=== PATIENT | male | born 1965 | race Hispanic/Latino ===

== ENCOUNTER → 2023-03-15 | Outpatient (CLI) | payer OTHER | END | disposition home or self-care (01) | LOC: EDUNIT# 09:50 → SHCH 09:51 | PROVIDERS: ATTEND Internal Medicine Cardiovascular Disease | DX: I70.203 Unspecified atherosclerosis of native arteries of extremities, bilateral legs (principal) | CPT/HCPCS: 93925 ==

== ENCOUNTER 2024-11-08 05:57 | Day surgery (SDC) | payer OTHER ==
[2024-11-05 11:14] LABS: CREATININE 1.4 mg/dL (0.5-1.3); POTASSIUM 4.5 mmol/L (3.5-5.1)
[2024-11-05 11:20] LABS: INR 1.05 (0.85-1.15); PROTHROMBIN TIME 11.1 SEC (9.6-11.6)
[2024-11-05 11:21] LABS: PARTIAL THROMBOPLASTIN TIME 29.2 SEC (26.3-35.5)
[2024-11-05 11:26] LABS: B-TYPE NATRIURETIC PEPTIDE < 5 pg/mL (0-100)
[2024-11-05 11:29] LABS: BASOPHILS # (AUTO) 0.04 K/uL (0.00-0.20); BASOPHILS % (AUTO) 0.6 % (0.0-5.0); EOSINOPHILS # (AUTO) 0.21 K/uL (0.00-0.70); EOSINOPHILS % (AUTO) 3.1 % (0.0-8.0); HEMATOCRIT 46.9 % (42-54); IMMATURE GRANULOCYTE ABSOLUTE 0.03 K/uL (0-1); LYMPHOCYTES # (AUTO) 1.9 K/uL (1.0-4.8); LYMPHOCYTES % (AUTO) 27.9 % (21.0-51.0); MEAN CORPUSCULAR HEMOGLOBIN 30.4 pg (27.0-33.0); MEAN CORPUSCULAR HGB CONC 32.8 g/dL (32.0-36.0); MEAN CORPUSCULAR VOLUME 92.5 fL (79-99); MONOCYTES # (AUTO) 0.5 K/uL (0.1-1.0); MONOCYTES % (AUTO) 7.6 % (3.0-13.0); NEUTROPHILS # (AUTO) 4.1 K/uL (1.8-7.7); NEUTROPHILS % (AUTO) 60.4 % (40.0-77.0); PLATELET COUNT (AUTO) 233 K/uL (130-400); RED BLOOD CELL COUNT(AUTO) 5.07 MIL/uL (4.50-6.20); RED CELL DISTRIBUTION WIDTH 15.2 % (11.0-15.5); WHITE BLOOD COUNT (AUTO) 6.8 K/uL (4.8-10.8)
[2024-11-05 11:49] VITALS: BP 101/62; PULSE 74; RESP 18; TEMP 97.7
--- NOTE | 2024-11-05 15:22 | NUR ---
REPORT REPORTED BUN AND CREAT TO STEPHANIE CASEY NP. OK TO PROCEED
[2024-11-08] VITALS (9 sets, daily range): BP systolic 108–128; BP diastolic 63–73; PULSE 73–90; RESP 11–16; TEMP 97.2–97.7
[~2024-11-08] VITALS: Ht 182.9 cm; Wt 82.3 kg
[~2024-11-08 05:57] MED LIST: ASPI-1443 PO; ATOR10TA69 PO; BACL10TA PO; COQ10 PO; EMPA25TA PO; FINA5TAB41 PO; GABA-1405 PO; GLIP1TAB6 PO; INSU100V SQ; LEVO5TAB13 PO; LISI10TA24 PO; LUBI24CA40 PO; MAGN500C4 PO; MELO-106 PO; METO-408 PO; MONT-39 PO; PANT40TA54 PO; SEMA1PEN3 SQ; TAMS-55 PO; TERB250T89 PO; TRESIBA SQ; TYLENOL ARTHRITIS PO
[2024-11-08] MEDS: 0.9%NACL 1000ML 1,000 ML IV SCH (06:39)
[2024-11-08] MEDS ORDERED: LIDOCAINE HCL 400MG/20ML VIAL ONE (06:57)
[2024-11-08] MEDS ORDERED: HEParin-NS 1,000 UNIT/500 ML 1,000 ML IV ONE (06:58)
[2024-11-08] MEDS ORDERED: IODIXANOL 320 MG/ML 100 ML VIAL ONE (06:58)
[2024-11-08] MEDS ORDERED: NITROGLYCERIN 50MG VIAL ONE ×2 (06:58→09:41)
[2024-11-08] MEDS ORDERED: HEParin 10,000 UNIT/10ML (1,000 UNIT/ML) VIAL ONE (06:58)
[2024-11-08] MEDS ORDERED: MIDAZOLAM HCL 1 MG/ML 2ML VIAL ONE ×2 (08:06→09:36)
[2024-11-08] MEDS ORDERED: FENTanyl CITRate PF 50 MCG/1 ML 2ML VIAL ONE ×2 (08:06→09:55)
[2024-11-08] MEDS ORDERED: niCARDIpine 25MG INJ IV ONE (08:14)
[2024-11-08] MEDS ORDERED: cloPIDOgrel 300MG TAB ONE (09:13)
[2024-11-08] MEDS ORDERED: ASPIRIN 325MG EC TAB PO ONE (09:14)
[2024-11-08] MEDS ORDERED: HEParin-NS 1,000 UNIT/500 ML 500 ML IV ONE (09:20)
[2024-11-08] MEDS ORDERED: 0.9%NACL 1000ML 1,000 ML IV SCH (11:00)
--- NOTE | 2024-11-08 11:23 | PRN ---
Procedure:Peripheral Angiogram Procedure Note Procedure Note: Peripheral Angiogram Date of Service: 11/08/2024 Referring Physician: Dr. Cardoso Procedures Performed: Lower abdominal aortogram, right lower extremity peripheral angiogram, left common formal angiogram Indications for Procedure: PAD, Terrell category 3 symptoms (right > left) DM II HTN HLP Description of Procedure: [After informed consent was obtained the patient was prepped and draped in the usual sterile fashion a 6 [place]i arterial sheath with a hemostatic valve was inserted into the left common femoral artery using a modified Salinger technique on the first pass front wall puncture. A 5 [place]i Omni Flush catheter was then advanced over a soft angled Glidewire into the abdominal aorta and a lower abdominal aortogram with runoff was obtained. The findings are listed below. The Omni flush catheter was then advanced to the right common femoral artery and a right lower extremity arteriogram was obtained. The findings are listed below.] Findings: Lower abdominal aorta: patent Left common iliac artery: patent Left external iliac artery: patent Left internal iliac artery: patent Left common femoral artery: patent Left profunda artery: patent Left superficial femoral artery: patent with 20-30% stenosis in the distal segment of the artery Left popliteal artery: 30% stenosis in the mid segment of the artery Left anterior tibial artery: 100% stenosis (COMMUNICATIONS INSTRUCTOR = 40mm) in the proximal segment of the artery. The artery reconstitutes distally via collateral blood flow. Left tibioperoneal artery: patent Left peroneal artery: patent Left posterior tibial artery: patent Left pedal arch: Incomplete, with slow three-vessel runoff supplying the anterior and posterior segments of the left pedal arch Right common iliac artery: patent Right external iliac artery: patent Right internal iliac artery: patent Right common femoral artery: patent Right profunda artery: patent Right superficial femoral artery: patent Right popliteal artery: patent Right anterior tibial artery: Diffuse 95% stenosis in the proximal segment of the artery. 100% stenosis (COMMUNICATIONS INSTRUCTOR = 10mm) in the mid segment of the artery. The artery reconstitutes distally via collateral blood flow. Diffuse 95% stenosis in the distal segment of the artery Right peroneal artery: patent Right posterior tibial artery: patent Right pedal arch: Incomplete, with slow three-vessel runoff supplying the anterior and posterior segments of the right pedal arch. Intervention: After reviewing the above-mentioned findings the decision was made to intervene on the right anterior tibial artery. The soft angled Glidewire was inserted into the Omni flush catheter was advanced to the right popliteal artery. We then removed the Omni flush catheter and exchanged the short six Bah[place]i arterial sheath for a 65 cm six Bahraini destination arterial sheath, which was then placed in the mid right superficial femoral artery. We then administered heparin 75 units/kg, clopidogrel 600 mg x 1 dose, and aspirin 325 mg x 1 dose. We then advanced a 0.014 whisper guidewire and 0.014 quick cross catheter across the areas stenosis and into the right dorsalis pedis artery. We then removed the whisper guidewire and injected contrast into the quick cross catheter, to ensure that we were in the true lumen of the right dorsalis pedis artery. Once this w as confirmed we inserted the 0.014 whisper guidewire back into the quick cross catheter and advanced it into the right dorsalis pedis artery. We then removed the quick cross catheter and performed balloon angioplasty (1.5 x 40 mm) in the proximal, mid, and distal right anterior tibial artery. We then attempted to cross a 4.0 x 80 mm shockwave balloon but were unable to cross the areas stenosis in the proximal right anterior tibial artery. We then advanced the quick cross catheter over the 0.014 whisper guidewire across the areas stenosis and into the right dorsalis pedis artery. We then exchanged the whisper guidewire for a Viper wire, which was then placed in the right dorsalis pedis artery. We then removed the quick cross catheter and performed multiple passes of orbital atherectomy (CSI 1.25 mm solid) at different speed's (16515 > 40439) in the proximal, mid, and distal segments of the right anterior tibial artery. We then performed balloon lithotripsy (shockwave 0.0 x 80 mm) in the proximal, mid, and distal segments of the right anterior tibial artery. We then performed drug coated balloon angioplasty (Medtronic impact 4.0 x 200 mm) in the proximal and mid right anterior tibial artery. The balloons were then removed and repeat angiography was performed, which revealed a widely patent right anterior tibial artery, without dissection, perforation, and brisk three-vessel runoff supplying the anterior and posterior segments of the right pedal arch. The Viper wire and 65 cm six [place]i destination arterial sheath were then removed and the arteriotomy site in the left common femoral artery was successfully closed using a six [place]i Angio-Seal device. The patient tolerated the procedure well and without issue. Estimated Blood Loss: [40]mL Complications: [ None] Conclusion: 1. PAD, Robin category 3 symptoms, 95-100% stenosis in the proximal, mid, and distal right anterior tibial artery status post successful treatment with balloon angioplasty, orbital atherectomy (CSI 1.25 mm solid), balloon lithotripsy (shockwave 4.0 x 80 mm) and drug coated balloon angioplasty, resulting in a widely patent artery, without dissection, perforation, and brisk three-vessel runoff supplying the right foot/pedal arch. 2. Residual PAD, 100% stenosis (COMMUNICATIONS INSTRUCTOR) in the proximal left anterior tibial artery. The artery reconstitutes distally via collateral blood flow 3. DM II 4. HTN 5. HLP Recommendations/Instructions: 1. Continue goal-directed medical therapy. 2. Please start the patient on clopidogrel 75 mg daily and continue aspirin 81 mg daily. The patient will remain on DAPT for a minimum of 6 months, but optimally for 1 year. 3. Groin precautions 4. 4 hours of bedrest 5. Please start the patient on NS @ 100 mL/hr x 3 hours. 6. No driving x 48 hours 7. No strenuous activity or heavy lifting x 2 weeks 8. Okay to discharge home once bedrest is complete and the patient's femoral access site remains soft to palpation and free of significant bleeding, bruising, or hematoma formation. 9. We will bring the patient back within the next 2-3 weeks to address the stenosis in the left anterior tibial artery. GALE CARDOSO MD November 08, 2024 11:23
--- NOTE | 2024-11-08 13:08 | NUR ---
REPORT: HAND-OFF COMMUNICATION GIVEN TO ANGELA JONES RN.
== END 2024-11-08 13:55 | disposition home or self-care (01) ==
LOC: DAH 05:57
PROVIDERS: ATTEND Internal Medicine Cardiovascular Disease
DX: E11.51 Type 2 diabetes mellitus with diabetic peripheral angiopathy without gangrene (principal); I70.213 Atherosclerosis of native arteries of extremities with intermittent claudication, bilateral legs; I70.92 Chronic total occlusion of artery of the extremities; I10 Essential (primary) hypertension; E78.49 Other hyperlipidemia; K21.9 Gastro-esophageal reflux disease without esophagitis; R07.9 Chest pain, unspecified; R42 Dizziness and giddiness; M79.2 Neuralgia and neuritis, unspecified; R25.2 Cramp and spasm; Z79.01 Long term (current) use of anticoagulants; Z79.899 Other long term (current) drug therapy; Z79.82 Long term (current) use of aspirin; Z98.890 Other specified postprocedural states; Z83.3 Family history of diabetes mellitus
CPT/HCPCS: 36415; 75630; 75716; 80048; 82948; 83880; 85025; 85347; 85610; 85730; 96360; 96361; 99156; 99157; A4606; C1724; C1760; C1769; C1893; C1894; C9774; J1644; J2250; J3010; J3490; J7030; Q9967; A4215; A4216; A4221; A4222; A4223; A4663; C1725; C1887; C2623

== ENCOUNTER 2024-12-16 06:06 | Day surgery (SDC) | payer OTHER ==
--- NOTE | 2024-12-14 10:07 | EKG ---
[facility] Test Date: 2024-12-14 Test Time: 09:55:46 Pat Name: HARI JENKINS Department: [facility] Room: Gender: M Captain'S Assistant: [id number] : 1965 Requested By: GALE KELLOGG Order Number: [id number] Reading MD: Marilyn Rg Measurements Intervals [place] Rate: 68 P: 63 NC: 185 QRS: 34 QRSD: 92 T: 26 QT: 424 QTc: 450 Interpretive Statements Sinus rhythm Borderline ST elevation, anterolateral leads No previous ECG available for comparison Electronically Signed On 12-14-2024 18:53:49 CDT by Marilyn Rg Please click the below link to view image of tracing.
[2024-12-14 10:10] LABS: BASOPHILS # (AUTO) 0.03 K/uL (0.00-0.20); BASOPHILS % (AUTO) 0.4 % (0.0-5.0); EOSINOPHILS # (AUTO) 0.19 K/uL (0.00-0.70); EOSINOPHILS % (AUTO) 2.8 % (0.0-8.0); HEMATOCRIT 46.7 % (42-54); IMMATURE GRANULOCYTE ABSOLUTE 0.02 K/uL (0-1); LYMPHOCYTES # (AUTO) 2.1 K/uL (1.0-4.8); LYMPHOCYTES % (AUTO) 30.2 % (21.0-51.0); MEAN CORPUSCULAR HEMOGLOBIN 30.2 pg (27.0-33.0); MEAN CORPUSCULAR HGB CONC 32.1 g/dL (32.0-36.0); MONOCYTES # (AUTO) 0.6 K/uL (0.1-1.0); MONOCYTES % (AUTO) 8.1 % (3.0-13.0); NEUTROPHILS % (AUTO) 58.2 % (40.0-77.0); PLATELET COUNT (AUTO) 263 K/uL (130-400); RED BLOOD CELL COUNT(AUTO) 4.97 MIL/uL (4.50-6.20); RED CELL DISTRIBUTION WIDTH 14.1 % (11.0-15.5); WHITE BLOOD COUNT (AUTO) 6.9 K/uL (4.8-10.8)
[2024-12-14 10:19] VITALS: BP 105/61; PULSE 71; RESP 18; TEMP 97.3
[2024-12-14 10:20] LABS: CREATININE 1.1 mg/dL (0.5-1.3); POTASSIUM 4.4 mmol/L (3.5-5.1)
[2024-12-14 10:28] LABS: INR 1.12 (0.85-1.15); PROTHROMBIN TIME 11.7 SEC (9.6-11.6)
[2024-12-14 10:29] LABS: PARTIAL THROMBOPLASTIN TIME 31.3 SEC (26.3-35.5)
[2024-12-14 10:33] LABS: ADD UA MICROSCOPIC YES; APPEARANCE,URINE CLEAR (CLEAR); BILIRUBIN,URINE NEGATIVE (NEGATIVE); COLOR,URINE COLORLESS (YELLOW); GLUCOSE, URINE (UA) >=1000 mg/dL (NEGATIVE); KETONES,URINE NEGATIVE (NEGATIVE); LEUKOCYTE ESTERASE ,URINE NEGATIVE Leu/uL (NEGATIVE); NITRATE,URINE NEGATIVE (NEGATIVE); OCCULT BLOOD,URINE NEGATIVE (NEGATIVE); PROTEIN,URINE NEGATIVE (NEGATIVE); UROBILINOGEN,URINE 0.2 mg/dL (0.2-1.0)
[2024-12-14 10:34] LABS: B-TYPE NATRIURETIC PEPTIDE 13 pg/mL (0-100)
[2024-12-14 10:35] LABS: RBC,URINE 0-1 /HPF (0-1); WBC,URINE 0-1 /HPF (0-1)
--- NOTE | 2024-12-14 11:15 | HMCIMG ---
Exam Type: CHEST 1VW Clinical Information: PREOP Comparison: None Findings: The lungs are clear of infiltrates. The heart is normal in size. The bony and soft tissue structures of the chest are unremarkable. Impression: Clear lungs.
[~2024-12-16] VITALS: Ht 182.9 cm; Wt 84.5 kg
[2024-12-16] VITALS (10 sets, daily range): BP systolic 89–121; BP diastolic 40–72; PULSE 66–82; RESP 12–18; TEMP 97.3–97.5
[2024-12-16] MEDS ORDERED: VERAPAMIL HCL 2.5 MG/ML VIAL ONE (07:09)
[2024-12-16] MEDS ORDERED: NITROGLYCERIN 50MG VIAL ONE ×2 (07:09→08:39)
[2024-12-16] MEDS ORDERED: LIDOCAINE HCL 400MG/20ML VIAL ONE (07:09)
[2024-12-16] MEDS ORDERED: HEParin 10,000 UNIT/10ML (1,000 UNIT/ML) VIAL ONE ×2 (07:09→09:33)
[2024-12-16] MEDS ORDERED: niCARDIpine 25MG INJ IV ONE ×2 (07:09→07:43)
[2024-12-16] MEDS ORDERED: SODIUM BICARB 50MEQ 50ML VIAL 0 ML ONE (07:09)
[2024-12-16] MEDS ORDERED: HEParin-NS 1,000 UNIT/500 ML 1,000 ML IV ONE (07:09)
[2024-12-16] MEDS ORDERED: IOHEXOL 350 MG/ML 100ML INFUS..BTL IV ONE (07:11)
[2024-12-16] MEDS ORDERED: IODIXANOL 320 MG/ML 100 ML VIAL ONE ×2 (07:13→10:28)
[2024-12-16] MEDS ORDERED: FENTanyl CITRate PF 50 MCG/1 ML 2ML VIAL ONE ×2 (07:20→09:35)
[2024-12-16] MEDS ORDERED: MIDAZOLAM HCL 1 MG/ML 2ML VIAL ONE ×2 (07:20→09:35)
[2024-12-16] MEDS: 0.9%NACL 1000ML 1,000 ML IV SCH (08:05)
[2024-12-16] MEDS ORDERED: morPHINE 2 MG SYG ONE (08:50)
[2024-12-16] MEDS ORDERED: DiphenhydrAMINE HCL 50 MG/ML VIAL ONE (08:50)
[2024-12-16] MEDS ORDERED: HEParin-NS 1,000 UNIT/500 ML 500 ML IV ONE (08:53)
[2024-12-16] MEDS ORDERED: cloPIDOgrel 300MG TAB ONE (10:38)
[2024-12-16] MEDS ORDERED: ASPIRIN 325MG EC TAB PO ONE (10:38)
[2024-12-16] MEDS ORDERED: 0.9%NACL 1000ML 1,000 ML IV SCH (11:00)
[2024-12-16] MEDS ORDERED: GLUCAGON 1MG KIT 1 MG ML IM PRN (11:00)
[2024-12-16] MEDS ORDERED: DEXTROSE 50%-WATER 50 ML DISP.SYRIN IV PRN (11:00)
--- NOTE | 2024-12-16 11:09 | PRN ---
Procedure:Peripheral Angiogram Procedure Note Procedure Note: Peripheral Angiogram Date/Time of Service: 12/16/2024 Referring Physician: Dr. Cardoso Procedures Performed: Lower abdominal aortogram, peripheral angiogram with lower extremity arterial runoff, orbital atherectomy, balloon angioplasty, balloon lithotripsy, ARIELA placement and drug coated balloon angioplasty in the left anterior tibial artery Indications for Procedure: PAD, Robin category 3 symptoms (left lower extremity) PAD status post peripheral intervention of the right anterior tibial artery done on 11/08/2024 Description of Procedure: [After informed consent was obtained the patient was prepped and draped in the usual sterile fashion a 6 Lao arterial sheath with a hemostatic valve was inserted into the right common femoral artery using a modified Salinger technique on the first past front wall puncture. A 5 Lao Omni Flush catheter was then advanced over a soft angled Glidewire into the abdominal aorta and a lower abdominal aortogram with runoff was obtained. The findings are listed below. The Omni flush catheter was then advanced in the left common femoral artery and a left lower extremity arteriogram was obtained.] Findings: Lower abdominal aorta: patent Right common iliac artery: patent Right external iliac artery: patent Right internal iliac artery: patent Right common femoral artery: patent Right profunda artery: patent Left common iliac artery: patent Left external iliac artery: patent Left internal iliac artery: patent Left common femoral artery: patent Left profunda artery: patent Left superficial femoral artery: patent Left popliteal artery: patent with 20% stenosis in the mid segment of the artery Left anterior tibial artery: 80% stenosis in the ostial segment of the artery. 100% stenosis (SOAP GRINDER = 200mm) in the proximal segment of the artery. The artery reconstitutes distally via collateral blood flow Left tibioperoneal artery: patent Left peroneal artery: 50% stenosis in the ostial segment of the artery Left posterior tibial artery: patent Left Pedal arch: Slow three-vessel runoff supplying the anterior and posterior segments of the left pedal arch. Intervention: After reviewing the above-mentioned findings the decision was made to intervene on the left anterior tibial artery. The soft angled Glidewire was inserted into the Omni flush catheter and advanced to the left popliteal artery. We then removed the Omni flush catheter and exchanged the short six Lao arterial sheath for a 65 cm six Lao destination arterial sheath, which was then placed in the mid left superficial femoral artery. We then administered heparin 75 units/kg x1 dose, clopidogrel 600 mg x 1 dose, and aspirin 325 mg x 1 dose. We then advanced a 0.014 whisper guidewire and 0.014 FineCross catheter across the area of stenosis and into the distal left dorsalis pedis artery. We then removed the guidewire and injected contrast into the FineCross catheter to ensure that we were in the true lumen of the left dorsalis pedis artery. Once this was confirmed we advanced a Viper wire through the FineCross and into the distal left dorsalis pedis artery. We then removed the FineCross catheter and performed multiple passes of orbital atherectomy (CSI 1.25 mm solid) in the proximal, mid, and distal segments of the left anterior tibial artery. The Viper wire was then exchanged for a 0.014 BMW guidewire, which was then placed in the distal left dorsalis pedis artery. We then performed balloon angioplasty (2.5 x 150 mm > 3.5-3.0 x 210 mm), balloon lithotripsy (shockwave 4.0 x 80 mm) in the proximal, mid, and distal left anterior tibial artery. We then successfully deployed a drug-eluting stent (Espirit 3.75 x 38 mm) in the proximal left anterior tibial artery and (Espirit 3.5 x 38 mm) in the mid left anterior tibial artery. We then post dilated the stents using a 4.0 x 30 mm noncompliant balloon. We then performed drug coated balloon angioplasty (Medtronic In.pact 4.0 x 40 mm) in the ostial left anterior tibial artery. We balloons were then removed and repeat angiography was performed, which revealed a widely patent left anterior tibial artery, without dissection, perforation, and brisk three-vessel runoff supplying the left foot/pedal arch. We then removed the 0.014 BMW guidewire and 65 cm six Lao destination arterial sheath. The arteriotomy site in the right common femoral artery was successfully closed using a six Lao Angio-Seal device. The patient tolerated the procedure well and without issue. Estimated Blood Loss: [40]mL Complications: [ None] Conclusion: 1. PAD, Robin category 3 symptoms (left lower extremity), 80% stenosis in the ostial left anterior tibial artery status post successful treatment with balloon angioplasty and drug coated balloon angioplasty, 100% stenosis in the proximal, mid, and distal left anterior tibial artery status post successful treatment with orbital atherectomy, balloon angioplasty, balloon lithotripsy, in the proximal, mid, and distal left anterior tibial artery, ARIELA placement (Espirit 3.75 x 38 mm and 3.5 x 38 mm) in the proximal and mid left anterior tibial artery. 2. PAD status post peripheral intervention of the right anterior tibial artery done on 11/08/2024 3. HTN 4. HLP 5. DM II Recommendations/Instructions: 1. Continue Goal-directed medical therapy. 2. Continue Aspirin 81 mg daily and Plavix 75 mg daily for minimum of six months 3. Groin precautions 4. 4 hours of bedrest 5. Start NS at 100 mL/hour x3 hours. 6. Okay to DC once bedrest is complete in the right groin is soft, and free of bruising, bleeding, and or hematoma formation. 7. No driving for the next 48 hours. 8. No heavy lifting or strenuous exercise for the next two weeks. 9. Please have the patient follow up with Dr. Cardoso in 1-2 weeks GALE CARDOSO MD Dec 16, 2024 11:09
--- NOTE | 2024-12-16 12:45 | NUR ---
PT C/O PAIN ABOVE HIS LEFT ANKLE GOOD DISTAL PULSE TO DORSALIS PEDIS NO SWELLING SKIN DISCOLORATION NOTED TO AREA. DR. BESS KWAN. PENDING CALL BACK
[2024-12-16] MEDS: acetaMINOPHEN 325 MG TAB PO ONE (13:45)
[2024-12-16] MEDS ORDERED: CLOP-31 PO (14:00)
== END 2024-12-16 15:10 | disposition home or self-care (01) ==
LOC: DAH 06:06
PROVIDERS: ATTEND Internal Medicine Cardiovascular Disease
DX: E11.51 Type 2 diabetes mellitus with diabetic peripheral angiopathy without gangrene (principal); I70.212 Atherosclerosis of native arteries of extremities with intermittent claudication, left leg; I70.92 Chronic total occlusion of artery of the extremities; I10 Essential (primary) hypertension; E11.40 Type 2 diabetes mellitus with diabetic neuropathy, unspecified; E78.49 Other hyperlipidemia; R07.9 Chest pain, unspecified; R42 Dizziness and giddiness; R25.2 Cramp and spasm; M79.2 Neuralgia and neuritis, unspecified; Z98.890 Other specified postprocedural states; Z83.3 Family history of diabetes mellitus; Z79.899 Other long term (current) drug therapy; Z79.82 Long term (current) use of aspirin
CPT/HCPCS: 80048; 83880; 85025; 85610; 85730; 81001; 36415; 71045; 93005; 75625; 75716; 99156; 99157 ×5; 85347 ×3; 82948; C9775; C1887 ×2; C1725 ×4; C1874 ×2; C1894 ×2; C1769 ×4; C1760; C2623; C1893; C1724; J1200; J3010 ×2; J3490 ×4; J2270; J1644 ×4; J2250 ×2; Q9967 ×2; A4215; A4222; A4221; A4663; A4216; A4223 ×3